=== PATIENT | male | born 1955 | race Two or more races ===

== ENCOUNTER 2019-02-13 16:15 | Emergency (ER) | payer SELFPAY ==
[~2019-02-13] VITALS: Ht 177.8 cm; Wt 79.0 kg
[2019-02-13] MEDS ORDERED: MORPHINE SULFATE 4 MG/ML CPJ (NOT FOR IM USE) IV STA (17:53)
[2019-02-13] MEDS ORDERED: ONDANSETRON HCL 4MG/2ML INJ IV STA (17:53)
[2019-02-13] MEDS ORDERED: SODIUM CHLORIDE 0.9% 1,000 ML IV ONE (17:53)
[2019-02-13 18:33] LABS: HEMATOCRIT. 46.1 % (42.0-52.0); HEMOGLOBIN. 16.4 g/dL (14.0-18.0); MEAN CORPUSCULAR HEMOGLOBIN 32.2 pg (28.0-32.0); MEAN CORPUSCULAR VOLUME 90.4 fL (80.0-94.0); MEAN PLATELET VOLUME 7.4 fl (7.4-10.4); PLATELET 335 x1000/uL (130-400)
[2019-02-13 18:37] LABS: CHLORIDE 105 mEq/L (98-107)
[2019-02-13 18:38] LABS: PROTHROMBIN TIME 10.5 sec (9.6-11.0)
[2019-02-13 18:49] LABS: PLATELET ESTIMATE NORMAL
[2019-02-13] MEDS ORDERED: HYDROCODONE/ACETAMINOPHEN 5/325MG TABLET PO ONE (20:30)
[2019-02-13 20:55] VITALS: BP 136/85
== END 2019-02-13 20:58 | disposition home or self-care (01) ==
LOC: ER 16:15
DX: R10.31 Right lower quadrant pain (principal); N13.2 Hydronephrosis with renal and ureteral calculous obstruction; Z98.890 Other specified postprocedural states
CPT/HCPCS: 36415; 74176; 80053; 83690; 85025; 85610; 96361; 96374; 96375; 99284; J2270; J2405; J7030